=== PATIENT | female | born 1940 | race Caucasian/White ===

== ENCOUNTER 2017-01-01 21:39 | Observation (INO) ==
[2017-01-01] MEDS ORDERED: Ipratropium/Albuterol Neb 3 ML IH ONE (22:25)
--- NOTE | 2017-01-01 22:28 | Emergency Department Note ---
Disposition Clinical Impression: Hypoglycemia Congestive heart failure Qualifiers: Congestive heart failure type: systolic Congestive heart failure chronicity: acute Qualified Code(s): I50.21 - Acute systolic (congestive) heart failure Disposition: Admitted As Inpatient Condition: Good Time of Disposition: 05:00 SOB HPI - General Chief Complaint: ED Shortness of Breath/Dyspnea Stated Complaint: D.I.B. Time Seen by Provider: 01/01/17 22:20 Source: patient, EMS Mode of arrival: EMS Limitations: no limitations Nursing Notes Reviewed: Yes Vital Signs Reviewed: Yes - History of Present Illness 76-year-old white female with difficulty breathing that started this evening. She has had a cough productive of small amount of white sputum for 3 days. She has had nasal congestion. No sore throat. No fever. She denies chest pain. She has chronic leg edema which is no worse than her baseline. Breathing is improved since arrival here. She does not wear oxygen. Pt Subjective Complaint: shortness of breath Onset (ago): Just [employer] Context: recent illness Severity: moderate Consistency/Duration: constant Improves with: oxygen, rest Worsens with: lying flat, exertion, coughing Known history of: asthma, congestive heart failure Associated symptoms: Reports: denies other symptoms Treatment prior to arrival: oxygen Cough present: Yes Cough Description: Involuntary Cough Frequency: Intermittent Sputum production: Yes Sputum Amount: Scant Sputum Color: White - Related Data Home oxygen amount: none Home Medications Medication Instructions Recorded Confirmed Furosemide [Lasix] 40 mg PO BID 03/28/16 01/01/17 Isosorbide DInitrate [Isochron] 30 mg PO DAILY 03/28/16 01/01/17 Metoprolol Tartrate [Lopressor] 50 mg PO BID 03/28/16 01/01/17 Mirtazapine [Remeron] 15 mg PO HS PRN 03/28/16 01/01/17 Multivit-Min/FA/Lycopen/Lutein [A 1 tab PO DAILY 03/28/16 01/01/17 Thru Z Select Multivit Tab] Omeprazole [PriLOSEC] 20 mg PO DAILY 03/28/16 01/01/17 Paricalcitol [Zemplar] 1 mcg PO DAILY 03/28/16 01/01/17 Amlodipine [Norvasc] 5 mg PO DAILY 12/11/16 01/01/17 Becaplermin [Regranex] 0.01 gm TP BID 12/11/16 12/11/16 Gabapentin [Neurontin] 100 - 200 mg PO HS 12/11/16 12/11/16 Insulin NPH Hum/Reg Insulin Hm 28 unit SQ HS 12/11/16 01/01/17 [Humulin 70/30 Kwikpen] Insulin NPH Hum/Reg Insulin Hm 30 unit SQ QAM 12/11/16 01/01/17 [Humulin 70/30 Kwikpen] Levothyroxine Sodium [Levoxyl] 200 mcg PO DAILY 12/11/16 01/01/17 Lisinopril [Zestril] 20 mg PO DAILY 12/11/16 01/01/17 Nystatin Cream [Mycostatin Cream] 1 appl TP BID 12/11/16 12/11/16 Nystatin POWDER [Nystop] 1 appl TP BID 12/11/16 01/01/17 Warfarin [Coumadin] 1.5 mg PO WETH 12/11/16 01/01/17 Benzonatate [Tessalon] 100 mg PO TID 01/01/17 01/01/17 LORazepam [Lorazepam] 0.5 mg PO BID 01/01/17 01/01/17 Mirtazapine [Remeron] 15 mg PO HS 01/01/17 01/01/17 Nitroglycerin [Nitrostat] 0.4 mg SL QDPC PRN 01/01/17 01/01/17 Tramadol HCl [Ultram] 50 mg PO QID PRN 01/01/17 01/01/17 Previous Rx's Medication Instructions Recorded Simvastatin [Zocor] 20 mg PO HS #5 tablet 12/12/16 Allergies Allergy/AdvReac Type Severity Reaction Status Date / Time codeine Allergy Hives Verified 12/04/16 10:31 Penicillins [PCN] Allergy Hives Verified 12/04/16 10:31 All systems ED: reviewed and negative except as stated. Constitutional: Denies: fever, chills Eyes: Denies: eye discharge ENT ED: Denies: ear pain, throat pain Cardiovascular: Denies: chest pain Respiratory: Reports: cough, dyspnea. Denies: wheezes Gastrointestinal: Denies: abdominal pain, nausea, vomiting, diarrhea Genitourinary: Denies: urgency, dysuria Musculoskeletal: Denies: back pain Integumentary: Denies: rash Past Medical History - Past Medical History Medical history: Reports: arthritis, asthma, DVT, diabetes, hyperlipidemia, hypertension, myocardial infarction, peripheral artery disease Surgical history: Reports: carotid endarterectomy, cholecystectomy, orthopedic, other, other (She has had amputation of the left big toe.) Psychiatric history: Reports: anxiety, depression PHARM SPEC history: Reports: no PHARM SPEC history - Social History Smoking Status: Former smoker Smokeless Tobacco Status: No Alcohol use: Reports: none Drug use: Reports: none Physical Exam - General Limitations: no limitations General appearance: alert, in no apparent distress - Head Head exam: atraumatic, normocephalic - Eye Eye exam: Present: PERRL, EOMI. Absent: scleral icterus, conjunctival injection - ENT ENT exam: normal oropharynx, mucous membranes moist, TM's normal bilaterally - Neck Neck exam: Present: normal inspection, full ROM, trachea midline. Absent: lymphadenopathy - Respiratory Respiratory exam: Present: wheezes (Rare mild expiratory wheeze), other ( Decreased breath sounds in the bases.). Absent: respiratory distress, accessory muscle use, prolonged expiratory phase - Cardiovascular Cardiovascular exam: Present: regular rate, normal rhythm, normal heart sounds - Abdominal Exam Abdominal exam: Present: soft, Non-Tender, normal bowel sounds. Absent: distention, organomegaly, mass - Extremities Exam Extremities exam: Present: normal inspection, full ROM, other (2+ nonpitting edema in both lower extremities stasis dermatitis) - Neurological Exam Neurological exam: Present: alert, oriented X3, normal gait - Psychiatric Psychiatric exam: Present: normal affect, normal mood - Skin Skin exam: Present: warm, dry, intact. Absent: rash Course - Reevaluation(s) Reevaluation #1: Despite the fact that the patient was awake and conversive and oriented her blood sugar came back significantly decreased. She was given an amp of D50. Her blood sugar was followed and rechecked. Time: 06:14 Vital Signs Temperature 98.1 F 01/01/17 21:52 Pulse Rate 73 01/01/17 21:52 Respiratory Rate 16 01/01/17 21:52 Blood Pressure 105/47 01/01/17 21:52 O2 Sat by Pulse Oximetry 100 01/01/17 21:52 Temperature 98.8 F 01/02/17 05:49 Pulse Rate 54 01/02/17 05:05 Respiratory Rate 16 01/02/17 05:49 Blood Pressure 123/66 01/02/17 05:49 O2 Sat by Pulse Oximetry 100 01/02/17 05:05 Oxygen Delivery Oxygen Delivery Room Air Shortness of Breath/Dyspnea - MDM Narrative Medical decision making narrative: Differential includes but is not limited to congestive heart failure, pneumonia , influenza, asthma exacerbation, pleural effusion. - Medical Records Medical records reviewed: Yes I reviewed the patient's medical records. - Lab Data Lab results reviewed: Yes I reviewed the patient's lab results. Result diagrams: 01/01/17 22:47 01/01/17 22:47 Lab Results 01/01/17 01/01/17 01/01/17 Range/Units 22:16 22:47 22:47 WBC 9.2 (4.3-11.1) K/mcL RBC 4.64 (3.82-4.97) M/mcL Hgb 11.3 L (11.5-15.4) g/dL Hct 37.5 (35.3-44.9) % MCV 80.8 L (83.0-100.0) fL MCH 24.4 L (28.0-33.3) pg MCHC 30.1 L (31.6-35.5) g/dL RDW 18.8 H (11.5-14.5) % Plt Count 393 (140-400) K/mcL MPV 10.5 (9.4-12.4) fL Immature Gran % 1.4 (0-4) % Seg Neutrophils % 66.1 % Lymphocytes % 19.6 % Monocytes % 8.5 % Eosinophils % 3.4 % Basophils % 1.0 % Neutrophils # 6.1 (1.6-8.9) K/mcL Lymphocytes # 1.8 (0.6-4.6) K/mcL Monocytes # 0.8 (0.0-1.3) K/mcL Eosinophils # 0.3 (0.0-0.6) K/mcL Basophils # 0.1 (0.0-0.2) K/mcL Sodium 139 (136-145) mEq/L Potassium 4.6 H (3.5-4.5) mEq/L Chloride 99 (98-109) mEq/L Carbon Dioxide 25 (19-29) mEq/L BUN 33 H (7-20) mg/dL Creatinine 2.55 H (0.57-1.11) mg/dL Est GFR ( Amer) 22 L (> 60) Est GFR (Non-Af Amer) 18 L (> 60) BUN/Creatinine Ratio 13 (6-26) Glucose 32 L* (70-99) mg/dL POC Glucose (58-89) Calculated Osmolality 292 (280-300) Calcium 8.6 (8.6-10.8) mg/dL Total Bilirubin 1.0 (0.2-1.2) mg/dL AST 206 H (5-34) Units/L ALT 70 H (0-55) Units/L Alkaline Phosphatase 134 H (38-126) Units/L Troponin I (0-0.03) ng/mL B-Natriuretic Peptide (0-100) pg/mL Serum Total Protein 6.7 (6.0-8.3) g/dL Albumin 2.6 L (3.5-5.0) g/dL Globulin 4.1 H (2.4-3.5) g/dL Albumin/Globulin Ratio 0.6 L (1.1-2.2) Urine Color Dark Yellow (Yellow) Urine Clarity Cloudy A (Clear) Urine pH 5.0 (5.0-8.0) pH Units Ur Specific [place] >= 1.030 H (1.010-1.025) Urine Protein >=300 H (Neg-Trace) mg/dL Urine Glucose (UA) Normal (Normal) mg/dL Urine Ketones Trace H (Negative) mg/dL Urine Blood Trace-intact H (Negative) Urine Nitrite Negative (Negative) Urine Bilirubin Moderate H (Negative) Urine Urobilinogen Normal (Normal) mg/dL Ur Leukocyte Esterase Negative (Negative) Urine Microscopic RBC 5-15 H (0-3) per hpf Urine Microscopic WBC 5-15 H (0-3) per hpf Ur Squamous Epith Cells Many H (None-Few) per lpf Amorphous Sediment Moderate H (Few) Urine Bacteria Many H (None-Few) per hpf 01/01/17 01/01/17 01/01/17 Range/Units 22:47 22:47 23:28 WBC (4.3-11.1) K/mcL RBC (3.82-4.97) M/mcL Hgb (11.5-15.4) g/dL Hct (35.3-44.9) % MCV (83.0-100.0) fL MCH (28.0-33.3) pg MCHC (31.6-35.5) g/dL RDW (11.5-14.5) % Plt Count (140-400) K/mcL MPV (9.4-12.4) fL Immature Gran % (0-4) % Seg Neutrophils % % Lymphocytes % % Monocytes % % Eosinophils % % Basophils % % Neutrophils # (1.6-8.9) K/mcL Lymphocytes # (0.6-4.6) K/mcL Monocytes # (0.0-1.3) K/mcL Eosinophils # (0.0-0.6) K/mcL Basophils # (0.0-0.2) K/mcL Sodium (136-145) mEq/L Potassium (3.5-4.5) mEq/L Chloride (98-109) mEq/L Carbon Dioxide (19-29) mEq/L BUN (7-20) mg/dL Creatinine (0.57-1.11) mg/dL Est GFR ( Amer) (> 60) Est GFR (Non-Af Amer) (> 60) BUN/Creatinine Ratio (6-26) Glucose (70-99) mg/dL POC Glucose 48 L* (58-89) Calculated Osmolality (280-300) Calcium (8.6-10.8) mg/dL Total Bilirubin (0.2-1.2) mg/dL AST (5-34) Units/L ALT (0-55) Units/L Alkaline Phosphatase (38-126) Units/L Troponin I 0.04 H* (0-0.03) ng/mL B-Natriuretic Peptide 1286 H (0-100) pg/mL Serum Total Protein (6.0-8.3) g/dL Albumin (3.5-5.0) g/dL Globulin (2.4-3.5) g/dL Albumin/Globulin Ratio (1.1-2.2) Urine Color (Yellow) Urine Clarity (Clear) Urine pH (5.0-8.0) pH Units Ur Specific [place] (1.010-1.025) Urine Protein (Neg-Trace) mg/dL Urine Glucose (UA) (Normal) mg/dL Urine Ketones (Negative) mg/dL Urine Blood (Negative) Urine Nitrite (Negative) Urine Bilirubin (Negative) Urine Urobilinogen (Normal) mg/dL Ur Leukocyte Esterase (Negative) Urine Microscopic RBC (0-3) per hpf Urine Microscopic WBC (0-3) per hpf Ur Squamous Epith Cells (None-Few) per lpf Amorphous Sediment (Few) Urine Bacteria (None-Few) per hpf 01/02/17 01/02/17 Range/Units 00:00 00:38 WBC (4.3-11.1) K/mcL RBC (3.82-4.97) M/mcL Hgb (11.5-15.4) g/dL Hct (35.3-44.9) % MCV (83.0-100.0) fL MCH (28.0-33.3) pg MCHC (31.6-35.5) g/dL RDW (11.5-14.5) % Plt Count (140-400) K/mcL MPV (9.4-12.4) fL Immature Gran % (0-4) % Seg Neutrophils % % Lymphocytes % % Monocytes % % Eosinophils % % Basophils % % Neutrophils # (1.6-8.9) K/mcL Lymphocytes # (0.6-4.6) K/mcL Monocytes # (0.0-1.3) K/mcL Eosinophils # (0.0-0.6) K/mcL Basophils # (0.0-0.2) K/mcL Sodium (136-145) mEq/L Potassium (3.5-4.5) mEq/L Chloride (98-109) mEq/L Carbon Dioxide (19-29) mEq/L BUN (7-20) mg/dL Creatinine (0.57-1.11) mg/dL Est GFR ( Amer) (> 60) Est GFR (Non-Af Amer) (> 60) BUN/Creatinine Ratio (6-26) Glucose (70-99) mg/dL POC Glucose 126 H 104 H (58-89) Calculated Osmolality (280-300) Calcium (8.6-10.8) mg/dL Total Bilirubin (0.2-1.2) mg/dL AST (5-34) Units/L ALT (0-55) Units/L Alkaline Phosphatase (38-126) Units/L Troponin I (0-0.03) ng/mL B-Natriuretic Peptide (0-100) pg/mL Serum Total Protein (6.0-8.3) g/dL Albumin (3.5-5.0) g/dL Globulin (2.4-3.5) g/dL Albumin/Globulin Ratio (1.1-2.2) Urine Color (Yellow) Urine Clarity (Clear) Urine pH (5.0-8.0) pH Units Ur Specific [place] (1.010-1.025) Urine Protein (Neg-Trace) mg/dL Urine Glucose (UA) (Normal) mg/dL Urine Ketones (Negative) mg/dL Urine Blood (Negative) Urine Nitrite (Negative) Urine Bilirubin (Negative) Urine Urobilinogen (Normal) mg/dL Ur Leukocyte Esterase (Negative) Urine Microscopic RBC (0-3) per hpf Urine Microscopic WBC (0-3) per hpf Ur Squamous Epith Cells (None-Few) per lpf Amorphous Sediment (Few) Urine Bacteria (None-Few) per hpf - Radiology Data Radiology results reviewed: Yes I reviewed the patient's radiology results. ITS Impressions Chest X-Ray 01/01/17 22:25 IMPRESSION: Moderate cardiomegaly with no acute airspace disease. Question small right pleural effusion. D/ / Fermin Chanel MD / Fermin Chanel MD Interpreting Provider: Fermin Chanel MD - EKG Data EKG attestation: Yes I reviewed and interpreted this EKG. EKG results narrative: Bradycardic rhythm, rate of 41, no definite P waves, possible junctional rhythm. Right bundle branch block. Nonspecific ST-T changes. Rhythm strip shows a regular rhythm, rate of 41, QRS 162 ms with no other ectopy as interpreted by me.
[2017-01-01 22:31] LABS: Bilirubin,Urine Moderate (Negative); Blood,Urine Trace-intact (Negative); Clarity,Urine Cloudy (Clear); Color,Urine Dark Yellow (Yellow); Glucose,Urine (UA) Normal (Normal); Ketones,Urine Trace mg/dL (Negative); Leukocyte Esterase,Urine Negative (Negative); Nitrite,Urine Negative (Negative); Protein,Urine >=300 mg/dL (Neg-Trace); Specific Gravity,Urine >= 1.030 (1.010-1.025); Urobilinogen,Urine Normal (Normal)
[2017-01-01 22:42] LABS: Amorphous Sediment,Urine Moderate (Few); Squamous Epithelial Cell,Urine Many per lpf (None-Few)
[2017-01-01 22:43] LABS: Bacteria,Urine Many per hpf (None-Few)
[2017-01-01 22:57] LABS: Basophils # 0.1 K/mcL (0.0-0.2); Eosinophils # 0.3 K/mcL (0.0-0.6); Eosinophils % 3.4 %; Hematocrit 37.5 % (35.3-44.9); Hemoglobin 11.3 g/dL (11.5-15.4); Immature Granulocytes % 1.4 % (0-4); Lymphocytes # 1.8 K/mcL (0.6-4.6); Lymphocytes % 19.6 %; Mean Corpuscular HGB Conc 30.1 g/dL (31.6-35.5); Mean Corpuscular Hemoglobin 24.4 pg (28.0-33.3); Mean Corpuscular Volume 80.8 fL (83.0-100.0); Mean Platelet Volume 10.5 fL (9.4-12.4); Monocytes # 0.8 K/mcL (0.0-1.3); Monocytes % 8.5 %; Neutrophils # 6.1 K/mcL (1.6-8.9); Platelet Count 393 K/mcL (140-400); Red Blood Count 4.64 M/mcL (3.82-4.97); Red Cell Distribution Width 18.8 % (11.5-14.5); Segmented Neutrophils % 66.1 %
[2017-01-01 23:15] LABS: Albumin 2.6 g/dL (3.5-5.0); Albumin/Globulin Ratio 0.6 (1.1-2.2); Calcium 8.6 mg/dL (8.6-10.8); Globulin 4.1 g/dL (2.4-3.5); Potassium 4.6 mEq/L (3.5-4.5); Total Protein 6.7 g/dL (6.0-8.3)
[2017-01-01] MEDS ORDERED: *HR* Dextrose 50 % in Water (Syg) 50 ML SYRINGE ONE (23:26)
[2017-01-01] MEDS ORDERED: Furosemide 40 MG/4 ML VIAL IVP ONE (23:31)
[2017-01-02] MEDS ORDERED: Naloxone 0.4 MG/ML INJ IVP PRN (05:39)
[2017-01-02] MEDS ORDERED: Mirtazapine 15 MG TABLET PO PRN (05:39)
[2017-01-02 08:06] LABS: Basophils # 0.1 K/mcL (0.0-0.2); Basophils % 0.8 %; Eosinophils # 0.3 K/mcL (0.0-0.6); Eosinophils % 3.2 %; Hemoglobin 11.6 g/dL (11.5-15.4); Immature Granulocytes % 0.8 % (0-4); Lymphocytes # 1.6 K/mcL (0.6-4.6); Lymphocytes % 15.3 %; Mean Corpuscular HGB Conc 30.5 g/dL (31.6-35.5); Mean Corpuscular Hemoglobin 24.2 pg (28.0-33.3); Mean Corpuscular Volume 79.3 fL (83.0-100.0); Mean Platelet Volume 10.5 fL (9.4-12.4); Monocytes # 0.7 K/mcL (0.0-1.3); Monocytes % 6.7 %; Neutrophils # 7.5 K/mcL (1.6-8.9); Platelet Count 327 K/mcL (140-400); Red Blood Count 4.79 M/mcL (3.82-4.97); Red Cell Distribution Width 18.3 % (11.5-14.5); Segmented Neutrophils % 73.2 %
[2017-01-02] MEDS: *HR* LORazepam 0.5 MG TABLET PO SCH ×2 (08:13→21:00)
[2017-01-02] MEDS: Lisinopril 20 MG TABLET PO SCH (08:15)
[2017-01-02] MEDS: Multivit/Ca/Min/Fe/FA 1 TAB TABLET PO SCH (08:15)
[2017-01-02] MEDS: Furosemide 40 MG TABLET PO SCH ×2 (08:15→16:35)
[2017-01-02 08:20] LABS: Calcium 8.7 mg/dL (8.6-10.8); Potassium 4.3 mEq/L (3.5-4.5)
[2017-01-02] MEDS ORDERED: NON-FORMULARY MEDICATION 1 EACH EACH (Insulin Nph Hum/Reg Insulin Hm [Humulin 70/30 Kwikpe SQ SCH ×2 (09:00→21:00)
[2017-01-02] MEDS ORDERED: Isosorbide MONOnitrate (24 HR) 30 MG TAB.ER.24H PO SCH ×2 (09:00→17:42)
[2017-01-02] MEDS ORDERED: Insulin NPH 100 UNIT/ML (x5UNIT) SQ SCH (09:00)
[2017-01-02] MEDS: Ipratropium/Albuterol Neb 3 ML IH SCH ×3 (10:21→16:17)
--- NOTE | 2017-01-02 17:26 | Internal Med History&Physical ---
Date of Encounter: 01/02/17 Time of Encounter: 16:50 Assessment and Plan (1) Congestive heart failure Current visit: Yes Status: Acute She will continue Lasix 40 mg twice a day as at home along with lisinopril and Lopressor. I will add Lanoxin and increase isosorbide. Further workup will be done as needed. Qualifiers: Congestive heart failure type: systolic Congestive heart failure chronicity : acute Qualified Code(s): I50.21 - Acute systolic (congestive) heart failure (2) Microcytosis Current visit: Yes Status: Acute We will order iron studies and other labs in a.m. (3) Hypothyroidism Current visit: No Status: Acute TSH was normal at 1.899 on 03/29/2016. We will continue present dose Synthroid Qualifiers: Qualified Code(s): E03.9 - Hypothyroidism, unspecified (4) CKD (chronic kidney disease) stage 4, GFR 15-29 ml/min Current visit: No Status: Chronic We will monitor renal indices as needed. (5) DM2 (diabetes mellitus, type 2) Current visit: No Status: Chronic Hemoglobin A1c was 8.5% on 03/29/2016. We will recheck in a.m. Continue Humulin N and do Accu-Cheks with SSI. Qualifiers: Diabetes mellitus complication status: with kidney complications Diabetes mellitus complication detail: with chronic kidney disease Diabetes mellitus long term care phlebotomist insulin use: unspecified long term care phlebotomist insulin use status Chronic kidney disease stage: stage 4 (severe) Qualified Code(s): E11.22 - Type 2 diabetes mellitus with diabetic chronic kidney disease; N18.4 - Chronic kidney disease, stage 4 (severe) (6) Hypertension Current visit: No Status: Chronic Continue Lopressor Zestril and Norvasc with Lasix Qualifiers: Hypertension type: essential hypertension Qualified Code(s): I10 - Essential (primary) hypertension Internal Medicine - H&P: HPI Chief complaint: Dyspnea Admitted From: Home Plans for Post Hospital Care: Home History of present illness: Ms. Bullock is a 76 year old female who came to the emergency room stating she had increasing dyspnea with cough over the preceding 5 days. She noticed increased edema. She states she missed 3 days of taking her Lasix earlier this week when she ran out of medication. She was evaluated in emergency room and felt to have exacerbation of systolic heart failure. She was admitted to [facility] floor for ongoing care needs. She was hospitalized last at [facility] April 2016 with a left fibular fracture. Her cardiovascular history is significant for hypertension. She has known ASHD status post DE 2 most recently 2010. Heart catheter was done 2013 and she did not require stents or other intervention. Previous heart catheter done 2010 showed mild LMCA disease with 15% stenosis, LAD with 60% stenosis in the midportion, and 60-70% stenosis in the proximal to mid left circumflex. The proximal RCA was completely occluded. There were good collateral vessels from the first obtuse marginal to the distal right posterolateral artery. The LVEF was 45-50%. She has known CHF with echocardiogram 2010 showing LVEF of 30-35% and overall poor visualization. There was mild MR but no other significant valvular abnormalities. She had grade 1 diastolic dysfunction. She has known ASPVD with left leg stent placed. She has known ASCVD with left carotid endarterectomy in the past. She has had a left leg DVT in the past and is now on Coumadin. Past Med Surg Social Fam HX - Past Medical History Medical history: arthritis, asthma, DVT, diabetes, hyperlipidemia, hypertension , myocardial infarction, peripheral artery disease Psychiatric history: anxiety, depression - Past Surgical History Surgical History: carotid endarterectomy, cholecystectomy, orthopedic, other, other - Social History Smoking Status: Former smoker Smokeless Tobacco Status: No Alcohol use: none Drug use: none - Family History Mother Family Member Ethnicity: Non- Living Status: Hx Family Cardiac Disorders: No Hx Family Respiratory Disorders: No Hx Family Cancer: Yes Hx Family GI Disorders: No Hx Family Endocrine Disorder: No Hx Family Neuromuscular Disorders: No Hx Family Neurologic Disorders: No Hx Family HEENT Disorders: No Hx Family Autoimmune Disorders: No Internal Medicine - H&P: Meds Furosemide [Lasix] 40 mg PO BID 03/28/16 [History] Isosorbide DInitrate [Isochron] 30 mg PO DAILY 03/28/16 [History] Metoprolol Tartrate [Lopressor] 50 mg PO BID 03/28/16 [History] Mirtazapine [Remeron] 15 mg PO HS PRN 03/28/16 [History] Multivit-Min/FA/Lycopen/Lutein [A Thru Z Select Multivit Tab] 1 tab PO DAILY [History] Omeprazole [PriLOSEC] 20 mg PO DAILY 03/28/16 [History] Paricalcitol [Zemplar] 1 mcg PO DAILY 03/28/16 [History] Amlodipine [Norvasc] 5 mg PO DAILY 12/11/16 [History] Becaplermin [Regranex] 0.01 gm TP BID 12/11/16 [History] Gabapentin [Neurontin] 100 - 200 mg PO HS 12/11/16 [History] Insulin NPH Hum/Reg Insulin Hm [Humulin 70/30 Kwikpen] 28 unit SQ HS 12/11/16 [ History] Insulin NPH Hum/Reg Insulin Hm [Humulin 70/30 Kwikpen] 30 unit SQ QAM 12/11/16 [ History] Levothyroxine Sodium [Levoxyl] 200 mcg PO DAILY 12/11/16 [History] Lisinopril [Zestril] 20 mg PO DAILY 12/11/16 [History] Nystatin Cream [Mycostatin Cream] 1 appl TP BID 12/11/16 [History] Nystatin POWDER [Nystop] 1 appl TP BID 12/11/16 [History] Warfarin [Coumadin] 1.5 mg PO WETH 12/11/16 [History] Simvastatin [Zocor] 20 mg PO HS #5 tablet 12/12/16 [Rx] Benzonatate [Tessalon] 100 mg PO TID 01/01/17 [History] LORazepam [Lorazepam] 0.5 mg PO BID 01/01/17 [History] Mirtazapine [Remeron] 15 mg PO HS 01/01/17 [History] Nitroglycerin [Nitrostat] 0.4 mg SL QDPC PRN 01/01/17 [History] Tramadol HCl [Ultram] 50 mg PO QID PRN 01/01/17 [History] Allergies codeine Allergy (Verified 12/04/16 10:31) Hives Penicillins [PCN] Allergy (Verified 12/04/16 10:31) Hives All Systems PM: A 10-system review of systems was performed and is negative for pertinent findings except as documented above in the HPI. Review of systems: Gen.: Her weight has stable since the April 2016 hospitalization at approximately 90 kg Cardiovascular: As per history of present illness Respiratory: She smoked from age [age] never exceeding 1 pack per day. She had PFTs in the past but does not wear home oxygen. GI: She has had cholecystectomy denies disorders of her liver or exocrine pancreas. She has GERD. : She has no history of hematuria dysuria or kidney stones. She has CKD stage III but does not follow with nephrology regularly. Neurologic: She has right eye blindness. She denies large distribution strokes or seizures. Endocrine: She was diagnosed with DM 2 in 1993. She has hyperlipidemia and hypothyroidism. Allergy/oncology: She had anemia in the past. She does not have known internal malignancies or other blood disorders. Psychiatric: She has anxiety and depression but no other mental health issues Musk skeletal: She had cervical spine osteomyelitis in 2010 and received IV antibiotics for several weeks. She has chronic low back pain. She does not have documented gout or osteoporosis. She had amputation of the left great toe and has had wound clinic evaluation for left lateral foot ulcer. She has acute fibular fracture of the medial malleolus and subacute fracture of the proximal fibula March 2016. - Constitutional Vitals: Temp Pulse Resp BP Pulse Ox 98.5 F 66 16 140/68 97 01/02/17 16:27 01/02/17 16:27 01/02/17 16:27 01/02/17 16:27 01/02/17 16:27 Exam: Gen.: She is a well developed overweight female who appears in no severe distress at present time. HEENT: Head is atraumatic and normocephalic. Eyes: EOMI. There is no scleral icterus. Mouth: Mucosa is moist. Neck: Supple and nontender. There is no thyromegaly or adenopathy noted. Heart: Regular without murmurs gallops or ectopics. Lungs: No wheezes or crackles are heard. Abdomen: Soft and nontender. No masses or guarding are noted. She has a large pannus Extremities: There is no cyanosis edema or clubbing noted. The left great toe is absent. She has mild DJD changes of her hands. The left foot is wrapped in gauze and I did not unwrap it. Neurologic: Mental status: She is talkative and able to answer most questions appropriately. Cranial nerves: Smile is symmetric. Forehead wrinkles bilaterally. Tongue protrudes midline. EOMI. Motor: There is no pronator drift. Cerebellar: Finger to nose is intact bilaterally. Skin: Warm and dry Internal Med - H&P Results - Labs CBC & Chem 7: 01/02/17 07:45 01/02/17 07:45 Labs: Short CBC 01/02/17 Range/Units 07:45 WBC 10.2 (4.3-11.1) K/mcL Hgb 11.6 (11.5-15.4) g/dL Hct 38.0 (35.3-44.9) % Plt Count 327 (140-400) K/mcL Neutrophils # 7.5 (1.6-8.9) K/mcL BMP 01/02/17 07:45 Sodium 139 Potassium 4.3 Chloride 98 Carbon Dioxide 27 BUN 36 H Creatinine 2.70 H Glucose 112 H Calcium 8.7 Cardiac Enzymes 01/02/17 01/02/17 Range/Units 07:45 12:29 Troponin I 0.02 0.02 (0-0.03) ng/mL
--- NOTE | 2017-01-02 19:17 | Electrocardiograph Report ---
[address] [place], [place] [address] Test Date: 2017-01-01 Pat Name: Maribel Bullock Department: [id number] Room: [facility] Gender: F Pharmaceutical Worker: : 1940 Requested By: David Ramachandran Order Number: [id number] Reading MD: Shahab Falcon MD Measurements Intervals [place] Rate: 41 P: [place]: 0 QRS: 110 QRSD: 163 T: 65 QT: 596 QTc: 534 Interpretive Statements JUNCTIONAL RHYTHM MARKED RIGHT AXIS DEVIATION RIGHT BUNDLE BRANCH BLOCK SEPTAL MYOCARDIAL INFARCTION, OF INDETERMINATE AGE Electronically Signed On 01-02-2017 19:15:01 EST by Shahab Falcon MD
[2017-01-02] MEDS: Insulin NPH 100 UNIT/ML (x5UNIT) SQ SCH (20:48)
[2017-01-02] MEDS: *HR* Digoxin 0.25 MG TABLET PO SCH (21:01)
[2017-01-03] MEDS: Furosemide 40 MG TABLET PO SCH ×2 (06:18→17:02)
[2017-01-03] MEDS: Insulin NPH 100 UNIT/ML (x5UNIT) SQ SCH ×2 (08:29→22:04)
[2017-01-03] MEDS: Isosorbide MONOnitrate (24 HR) 60 MG TAB.ER.24H PO SCH (08:31)
[2017-01-03] MEDS: Lisinopril 20 MG TABLET PO SCH (08:31)
[2017-01-03] MEDS: *HR* Digoxin 0.25 MG TABLET PO SCH (08:32)
[2017-01-03] MEDS: Multivit/Ca/Min/Fe/FA 1 TAB TABLET PO SCH (08:32)
[2017-01-03] MEDS: *HR* LORazepam 0.5 MG TABLET PO SCH ×2 (08:32→22:04)
[2017-01-03 08:41] LABS: Basophils % 0.1 %; Hemoglobin 11.2 g/dL (11.5-15.4); Immature Granulocytes % 0.9 % (0-4); Lymphocytes # 0.4 K/mcL (0.6-4.6); Lymphocytes % 4.7 %; Mean Corpuscular HGB Conc 30.3 g/dL (31.6-35.5); Mean Corpuscular Volume 79.4 fL (83.0-100.0); Mean Platelet Volume 10.9 fL (9.4-12.4); Monocytes # 0.2 K/mcL (0.0-1.3); Monocytes % 2.1 %; Neutrophils # 8.4 K/mcL (1.6-8.9); Platelet Count 346 K/mcL (140-400); Red Blood Count 4.66 M/mcL (3.82-4.97); Red Cell Distribution Width 18.6 % (11.5-14.5); Segmented Neutrophils % 92.2 %
[2017-01-03 08:54] LABS: INR 5.2; Prothrombin Time 59.3 Seconds (9.4-12.1)
[2017-01-03 08:59] LABS: Calcium 9.1 mg/dL (8.6-10.8)
[2017-01-03 09:25] LABS: Potassium 5.3 mEq/L (3.5-4.5)
--- NOTE | 2017-01-03 10:41 | Internal Med Progress Note ---
Date of Encounter: 01/03/17 Time of Encounter: 10:30 - Assessment and plan (1) Congestive heart failure Current Visit: Yes Status: Acute Assessment and plan: January 03. Continue Lasix, lisinopril, Lopressor, Lanoxin, and isosorbide Qualifiers: Congestive heart failure type: systolic Congestive heart failure chronicity : acute Qualified Code(s): I50.21 - Acute systolic (congestive) heart failure (2) Microcytosis Current Visit: Yes Status: Acute Assessment and plan: January 03. Iron studies are pending (3) Hypothyroidism Current Visit: No Status: Acute Assessment and plan: January 03. We will recheck TSH in a.m. Qualifiers: Qualified Code(s): E03.9 - Hypothyroidism, unspecified (4) CKD (chronic kidney disease) stage 4, GFR 15-29 ml/min Current Visit: No Status: Chronic Assessment and plan: January 03. Continue to monitor renal indices.. (5) DM2 (diabetes mellitus, type 2) Current Visit: No Status: Chronic Assessment and plan: January 03. Hemoglobin A1c is pending Qualifiers: Diabetes mellitus complication status: with kidney complications Diabetes mellitus complication detail: with chronic kidney disease Diabetes mellitus technician terminal and repeater insulin use: unspecified penitentiary insulin use status Chronic kidney disease stage: stage 4 (severe) Qualified Code(s): E11.22 - Type 2 diabetes mellitus with diabetic chronic kidney disease; N18.4 - Chronic kidney disease, stage 4 (severe) (6) Hypertension Current Visit: No Status: Chronic Assessment and plan: January 03. Continue Lopressor, Zestril, Norvasc, and Lasix Qualifiers: Hypertension type: essential hypertension Qualified Code(s): I10 - Essential (primary) hypertension (7) Foot ulcer Current Visit: No Status: Chronic Assessment and plan: January 03. Continue present treatment Qualifiers: Laterality: unspecified laterality Non-pressure ulcer stage: limited to breakdown of skin Qualified Code(s): L97.501 - Non-pressure chronic ulcer of other part of unspecified foot limited to breakdown of skin - Subjective Interval history: January 03. She has no new complaints states her breathing has improved - Constitutional Vitals: Temp Pulse Resp BP Pulse Ox 97.4 F L 65 20 129/80 94 L 01/03/17 08:00 01/03/17 08:00 01/03/17 08:00 01/03/17 08:00 01/03/17 08:00 Exam: Her right medial ankle area has an ulcer measuring approximately 6 cm maximum diameter. It is shallow and has a clean granulation tissue base. There is a small area of necrotic tissue in the proximal portion. She has a ulcerative area approximately 6-8 mm on the lateral left foot area at the base of the fifth toe. She has very shallow ulcers on the dorsum of the distal phalanx of the left second and third toes. She has a large area in her mid back approximately 25 cm maximum diameter that appears to be tinea corporis. Reviewed her medications and lab results. Internal Medicine: Result - Labs CBC & Chem 7: 01/03/17 04:00 01/03/17 08:00 Labs: Short CBC 01/03/17 Range/Units 04:00 WBC 9.2 (4.3-11.1) K/mcL Hgb 11.2 L (11.5-15.4) g/dL Hct 37.0 (35.3-44.9) % Plt Count 346 (140-400) K/mcL Neutrophils # 8.4 (1.6-8.9) K/mcL BMP 01/03/17 08:00 Sodium 134 L Potassium 5.3 H D Chloride 98 Carbon Dioxide 21 BUN 40 H Creatinine 2.63 H Glucose 359 H Calcium 9.1 Cardiac Enzymes 01/02/17 Range/Units 12:29 Troponin I 0.02 (0-0.03) ng/mL - ABG Interpretation ABG results: PT/INR, D-dimer PT 59.3 Seconds (9.4-12.1) H* 01/03/17 08:26 Consult Discharge Plan - Plan Referrals: Marisa Warren MD [Primary Care Provider] - 1 week
[2017-01-03] MEDS ORDERED: *HR* Digoxin 0.25 MG TABLET PO SCH (10:50)
[2017-01-03] MEDS: Clotrimazole/Betameth Dip CRM 45 APPL/45 GM TUBE TP SCH ×2 (11:46→22:06)
[2017-01-03 13:32] LABS: Hemoglobin A1C 7.6 %
[2017-01-04 05:51] LABS: Basophils % 0.1 %; Hematocrit 32.8 % (35.3-44.9); Immature Granulocytes % 0.7 % (0-4); Lymphocytes # 0.7 K/mcL (0.6-4.6); Lymphocytes % 5.1 %; Mean Corpuscular HGB Conc 30.5 g/dL (31.6-35.5); Mean Corpuscular Hemoglobin 24.3 pg (28.0-33.3); Mean Corpuscular Volume 79.8 fL (83.0-100.0); Mean Platelet Volume 11.2 fL (9.4-12.4); Monocytes # 0.8 K/mcL (0.0-1.3); Monocytes % 5.6 %; Platelet Count 325 K/mcL (140-400); Red Blood Count 4.11 M/mcL (3.82-4.97); Red Cell Distribution Width 18.6 % (11.5-14.5); Segmented Neutrophils % 88.5 %
[2017-01-04 06:00] LABS: Calcium 9.1 mg/dL (8.6-10.8); Magnesium 2.1 mg/dL (1.6-2.6)
[2017-01-04 06:19] VITALS: BP 132/80
[2017-01-04 06:24] LABS: Thyroid Stimulating Hormone 1.909 mcIU/mL (0.350-4.840)
[2017-01-04 06:35] LABS: Neutrophils # 12.7 K/mcL (1.6-8.9)
[2017-01-04] MEDS: Insulin NPH 100 UNIT/ML (x5UNIT) SQ SCH (08:00)
[2017-01-04] MEDS: Furosemide 40 MG TABLET PO SCH (08:00)
--- NOTE | 2017-01-04 08:27 | Discharge Summary ---
Date of Encounter: 01/04/17 Time of Encounter: 08:10 - Discharge Diagnosis (1) Congestive heart failure Priority: Primary Status: Chronic Qualifiers: Congestive heart failure type: systolic Congestive heart failure chronicity : acute Qualified Code(s): I50.21 - Acute systolic (congestive) heart failure (2) Microcytosis Priority: Secondary Status: Chronic (3) Hypothyroidism Priority: Secondary Status: Chronic Qualifiers: Qualified Code(s): E03.9 - Hypothyroidism, unspecified (4) CKD (chronic kidney disease) stage 4, GFR 15-29 ml/min Priority: Secondary Status: Chronic (5) DM2 (diabetes mellitus, type 2) Priority: Secondary Status: Chronic Qualifiers: Diabetes mellitus complication status: with kidney complications Diabetes mellitus complication detail: with chronic kidney disease Diabetes mellitus chcf insulin use: unspecified termite inspector insulin use status Chronic kidney disease stage: stage 4 (severe) Qualified Code(s): E11.22 - Type 2 diabetes mellitus with diabetic chronic kidney disease; N18.4 - Chronic kidney disease, stage 4 (severe) (6) Hypertension Priority: Secondary Status: Chronic Qualifiers: Hypertension type: essential hypertension Qualified Code(s): I10 - Essential (primary) hypertension (7) Foot ulcer Priority: Secondary Status: Chronic Qualifiers: Laterality: unspecified laterality Non-pressure ulcer stage: limited to breakdown of skin Qualified Code(s): L97.501 - Non-pressure chronic ulcer of other part of unspecified foot limited to breakdown of skin - Discharge Medications Prescriptions: Clotrimazole/Betameth Dip CRM [Lotrisone CRM] 1 appl TP BID #1 tube Digoxin [Lanoxin] 0.125 mg PO DAILY #30 tablet Isosorbide MONOnitrate (24 HR) [Imdur] 60 mg PO DAILY #30 tab.er.24h Home Medications: Furosemide [Lasix] 40 mg PO BID 03/28/16 [History] Metoprolol Tartrate [Lopressor] 50 mg PO BID 03/28/16 [History] Mirtazapine [Remeron] 15 mg PO HS PRN 03/28/16 [History] Multivit-Min/FA/Lycopen/Lutein [A Thru Z Select Multivit Tab] 1 tab PO DAILY [History] Omeprazole [PriLOSEC] 20 mg PO DAILY 03/28/16 [History] Paricalcitol [Zemplar] 1 mcg PO DAILY 03/28/16 [History] Amlodipine [Norvasc] 5 mg PO DAILY 12/11/16 [History] Becaplermin [Regranex] 0.01 gm TP BID 12/11/16 [History] Gabapentin [Neurontin] 100 - 200 mg PO HS 12/11/16 [History] Insulin NPH Hum/Reg Insulin Hm [Humulin 70/30 Kwikpen] 28 unit SQ HS 12/11/16 [ History] Insulin NPH Hum/Reg Insulin Hm [Humulin 70/30 Kwikpen] 30 unit SQ QAM 12/11/16 [ History] Levothyroxine Sodium [Levoxyl] 200 mcg PO DAILY 12/11/16 [History] Lisinopril [Zestril] 20 mg PO DAILY 12/11/16 [History] Nystatin Cream [Mycostatin Cream] 1 appl TP BID 12/11/16 [History] Nystatin POWDER [Nystop] 1 appl TP BID 12/11/16 [History] Warfarin [Coumadin] 1.5 mg PO QDPC 12/11/16 [History] LORazepam [Lorazepam] 0.5 mg PO BID PRN 01/01/17 [History] Mirtazapine [Remeron] 15 mg PO HS 01/01/17 [History] Nitroglycerin [Nitrostat] 0.4 mg SL QDPC PRN 01/01/17 [History] Tramadol HCl [Ultram] 50 mg PO QID PRN 01/01/17 [History] HYDROcodone/Acet 5/325 mg [[place] 5-325 mg] 1 tab PO Q8H PRN 01/03/17 [History] Meclizine HCl [Verticalm] 25 mg PO TID PRN 01/03/17 [History] Clotrimazole/Betameth Dip CRM [Lotrisone CRM] 1 appl TP BID #1 tube 01/04/17 [Rx ] Digoxin [Lanoxin] 0.125 mg PO DAILY #30 tablet 01/04/17 [Rx] Isosorbide MONOnitrate (24 HR) [Imdur] 60 mg PO DAILY #30 tab.er.24h 01/04/17 [ Rx] Allergies/Adverse Reactions: Allergies codeine Allergy (Verified 12/04/16 10:31) Hives Penicillins [PCN] Allergy (Verified 12/04/16 10:31) Hives Date of admission: 01/02/17 05:13 Primary care physician: Marisa Warren Consults: 01/02/17 06:42 Consult to Agricultural Economist [CONS] Routine Reason for SW Consult: DC planning - Patient Status Disposition: Home, Self-Care Condition: Good Overall status at discharge: patient is progressing back to baseline - Discharge Instructions Follow Up With: Marisa Warren MD [Primary Care Provider] - 1 week - Diet and Activity Activity: resume usual activities as tolerated Diet: diabetic diet Hospital course: Ms. Bullock is a 76 year old female who came to the emergency room stating she had increasing dyspnea with cough over the preceding 5 days. She noticed increased edema. She states she missed 3 days of taking her Lasix earlier this week when she ran out of medication. She was evaluated in emergency room and felt to have exacerbation of systolic heart failure. She was admitted to [facility] floor for ongoing care needs. Initial orders were written by the emergency room physician. I saw her on January 02 and performed the history and physical. She was placed back on her home dose of Lasix along with lisinopril and Lopressor. I increased her isosorbide to 60 mg daily and added Lanoxin. She clinically improved with resolution of dyspnea. Her bn- peptide remained elevated throughout her hospital stay. Her creatinine remained stable at 2.6 on the day of discharge with estimated GFR of 18. Hemoglobin A1c return slightly above desirable level at 7.6%. Dr. Warren can adjust diabetic medications as needed. Anemia testing showed iron 60, transferrin saturation 20%, ferritin 946, and B12 level 559. Hemoglobin was 10.0 the day of discharge. She was started on Lotrisone cream for a large area of dermatitis on her mid lower back area. She will continue this for 10 days upon discharge On January 04 she felt improved and stable for discharge home. She will follow with Dr. Warren within one week. Home health services will be resumed. - Time Spent with Patient Total time spent providing and/or coordinating discharge services: - Constitutional Vitals: Temp Pulse Resp BP Pulse Ox 97.6 F 61 18 132/80 99 01/04/17 06:18 01/04/17 06:18 01/04/17 06:18 01/04/17 06:18 01/04/17 06:18
--- NOTE | 2017-01-04 08:34 | Physician Discharge Referral ---
Home Health/Hosp Referral Info Transfer to: Home Health Attending Provider: Elliott Provider in Charge Post Discharge: PCP Jannette) - Diagnosis (1) Congestive heart failure Priority: Primary Status: Chronic (2) Microcytosis Priority: Secondary Status: Chronic (3) Hypothyroidism Priority: Secondary Status: Chronic (4) CKD (chronic kidney disease) stage 4, GFR 15-29 ml/min Priority: Secondary Status: Chronic (5) DM2 (diabetes mellitus, type 2) Priority: Secondary Status: Chronic (6) Hypertension Priority: Secondary Status: Chronic (7) Foot ulcer Status: Chronic - Respiratory Orders Smoking Cessation: Smoking cessation has been advised. For more information, call the [place] Tobacco Quit Line at 3-072-NEVM-NOW. - Diet/Nutrition Diet/Nutrition Orders: No Concentrated Sweets - Activity Activity Orders: Chair, Walker - Services Needed Following services are medically necessary services: Nursing, Home Health Aide, Physical Therapy, Occupational Therapy - Transfer Medications Prescriptions: Clotrimazole/Betameth Dip CRM [Lotrisone CRM] 1 appl TP BID #1 tube Digoxin [Lanoxin] 0.125 mg PO DAILY #30 tablet Isosorbide MONOnitrate (24 HR) [Imdur] 60 mg PO DAILY #30 tab.er.24h Home Medications: Furosemide [Lasix] 40 mg PO BID 03/28/16 [History] Metoprolol Tartrate [Lopressor] 50 mg PO BID 03/28/16 [History] Mirtazapine [Remeron] 15 mg PO HS PRN 03/28/16 [History] Multivit-Min/FA/Lycopen/Lutein [A Thru Z Select Multivit Tab] 1 tab PO DAILY [History] Omeprazole [PriLOSEC] 20 mg PO DAILY 03/28/16 [History] Paricalcitol [Zemplar] 1 mcg PO DAILY 03/28/16 [History] Amlodipine [Norvasc] 5 mg PO DAILY 12/11/16 [History] Becaplermin [Regranex] 0.01 gm TP BID 12/11/16 [History] Gabapentin [Neurontin] 100 - 200 mg PO HS 12/11/16 [History] Insulin NPH Hum/Reg Insulin Hm [Humulin 70/30 Kwikpen] 28 unit SQ HS 12/11/16 [ History] Insulin NPH Hum/Reg Insulin Hm [Humulin 70/30 Kwikpen] 30 unit SQ QAM 12/11/16 [ History] Levothyroxine Sodium [Levoxyl] 200 mcg PO DAILY 12/11/16 [History] Lisinopril [Zestril] 20 mg PO DAILY 12/11/16 [History] Nystatin Cream [Mycostatin Cream] 1 appl TP BID 12/11/16 [History] Nystatin POWDER [Nystop] 1 appl TP BID 12/11/16 [History] Warfarin [Coumadin] 1.5 mg PO QDPC 12/11/16 [History] LORazepam [Lorazepam] 0.5 mg PO BID PRN 01/01/17 [History] Mirtazapine [Remeron] 15 mg PO HS 01/01/17 [History] Nitroglycerin [Nitrostat] 0.4 mg SL QDPC PRN 01/01/17 [History] Tramadol HCl [Ultram] 50 mg PO QID PRN 01/01/17 [History] HYDROcodone/Acet 5/325 mg [[place] 5-325 mg] 1 tab PO Q8H PRN 01/03/17 [History] Meclizine HCl [Verticalm] 25 mg PO TID PRN 01/03/17 [History] Clotrimazole/Betameth Dip CRM [Lotrisone CRM] 1 appl TP BID #1 tube 01/04/17 [Rx ] Digoxin [Lanoxin] 0.125 mg PO DAILY #30 tablet 01/04/17 [Rx] Isosorbide MONOnitrate (24 HR) [Imdur] 60 mg PO DAILY #30 tab.er.24h 01/04/17 [ Rx] Allergies/Adverse Reactions: Allergies codeine Allergy (Verified 12/04/16 10:31) Hives Penicillins [PCN] Allergy (Verified 12/04/16 10:31) Hives Certification: Further, I certify that my clinical findings support that this patient is homebound (i.e. absences from home require considerable and taxing effort and are for medical reasons or caodaism services or infrequently or short duration when for other reasons) because: Homebound Reason: Leaving home requires considerable and taxing effort due to condition (Severe deconditioning and near blindness) Attestation: My signature below is to certify that this patient is under my care and that I, or nurse practitioner, or a physician's court assistant working with me, has a face-to -face encounter with this patient.
[2017-01-04] MEDS: Isosorbide MONOnitrate (24 HR) 60 MG TAB.ER.24H PO SCH (11:28)
[2017-01-04] MEDS: *HR* LORazepam 0.5 MG TABLET PO SCH (11:31)
[2017-01-04] MEDS: Multivit/Ca/Min/Fe/FA 1 TAB TABLET PO SCH (11:33)
[2017-01-04] MEDS: Clotrimazole/Betameth Dip CRM 45 APPL/45 GM TUBE TP SCH (11:34)
== END 2017-01-04 03:35 | disposition home or self-care (01) ==
LOC: INPPIK 21:39 → EMEROOPIK 21:39 → INPPIK 01-02 06:10
PROVIDERS: ADMIT Emergency Medicine; ATTEND Internal Medicine

== ENCOUNTER 2017-01-06 16:37 | Observation (INO) ==
--- NOTE | 2017-01-06 16:51 | Emergency Department Note ---
Disposition Clinical Impression: Pancreatitis, Abdominal pain, Constipation, Pneumonia Disposition: Admitted As Inpatient Condition: Fair Referrals: Marisa Warren MD [Primary Care Provider] - Forms: Work/School Release, ED Satisfaction Letter Time of Disposition: 19:10 (KAIDEN OBSHenny) Abdominal Pain HPI - General Chief Complaint: ED Abdominal Pain Stated Complaint: belly pain Time Seen by Provider: 01/06/17 16:45 Source: patient, EMS Mode of arrival: EMS Limitations: no limitations Nursing Notes Reviewed: Yes Vital Signs Reviewed: Yes - History of Present Illness HPI Narrative: Patient was just discharged from the hospital on Friday presents now to the emergency room states that she has not gotten out of bed patient states that she is weak does not have any energy she is having severe epigastric pain with radiation of the chest denies any nausea vomiting or diaphoresis patient states she has not had a bowel movement has not passed any gas patient's chart stabbing type pain in the epigastric region radiating into the back and then up in the chest denies lightheadedness dizziness denies any burning or urgency stay numbness tingling weakness cough cold of flulike symptoms patient denies any additional complaints at this time very poor historian Pt Subjective Complaint: abdominal pain Onset (ago): day(s) (2) Consistency: constant, Worsening Location: epigastric Pain Severity: severe Pain Scale: 10 Quality: stabbing, aching Radiation: back Improves with: nothing Worsens with: nothing Context: sick contacts Associated symptoms: Reports: nausea, constipation. Denies: vomiting, diarrhea , fever, chills, dysuria, hematemesis, hematochezia, melena, hematuria, anorexia , syncope Treatments prior to arrival: none - Related Data Home Medications Medication Instructions Recorded Confirmed Furosemide [Lasix] 40 mg PO BID 03/28/16 01/01/17 Metoprolol Tartrate [Lopressor] 50 mg PO BID 03/28/16 01/01/17 Mirtazapine [Remeron] 15 mg PO HS PRN 03/28/16 01/01/17 Multivit-Min/FA/Lycopen/Lutein [A 1 tab PO DAILY 03/28/16 01/01/17 Thru Z Select Multivit Tab] Omeprazole [PriLOSEC] 20 mg PO DAILY 03/28/16 01/01/17 Paricalcitol [Zemplar] 1 mcg PO DAILY 03/28/16 01/01/17 Amlodipine [Norvasc] 5 mg PO DAILY 12/11/16 01/01/17 Becaplermin [Regranex] 0.01 gm TP BID 12/11/16 01/03/17 Gabapentin [Neurontin] 100 - 200 mg PO HS 12/11/16 01/03/17 Insulin NPH Hum/Reg Insulin Hm 28 unit SQ HS 12/11/16 01/01/17 [Humulin 70/30 Kwikpen] Insulin NPH Hum/Reg Insulin Hm 30 unit SQ QAM 12/11/16 01/01/17 [Humulin 70/30 Kwikpen] Levothyroxine Sodium [Levoxyl] 200 mcg PO DAILY 12/11/16 01/01/17 Lisinopril [Zestril] 20 mg PO DAILY 12/11/16 01/01/17 Nystatin Cream [Mycostatin Cream] 1 appl TP BID 12/11/16 01/03/17 Nystatin POWDER [Nystop] 1 appl TP BID 12/11/16 01/01/17 Warfarin [Coumadin] 1.5 mg PO QDPC 12/11/16 01/03/17 LORazepam [Lorazepam] 0.5 mg PO BID PRN 01/01/17 01/01/17 Mirtazapine [Remeron] 15 mg PO HS 01/01/17 01/01/17 Nitroglycerin [Nitrostat] 0.4 mg SL QDPC PRN 01/01/17 01/01/17 Tramadol HCl [Ultram] 50 mg PO QID PRN 01/01/17 01/01/17 HYDROcodone/Acet 5/325 mg [[place] 1 tab PO Q8H PRN 01/03/17 01/03/17 5-325 mg] Meclizine HCl [Verticalm] 25 mg PO TID PRN 01/03/17 01/03/17 Previous Rx's Medication Instructions Recorded Clotrimazole/Betameth Dip CRM 1 appl TP BID #1 tube 01/04/17 [Lotrisone CRM] Digoxin [Lanoxin] 0.125 mg PO DAILY #30 tablet 01/04/17 Isosorbide MONOnitrate (24 HR) 60 mg PO DAILY #30 tab.er.24h 01/04/17 [Imdur] Allergies Allergy/AdvReac Type Severity Reaction Status Date / Time codeine Allergy Hives Verified 12/04/16 10:31 Penicillins [PCN] Allergy Hives Verified 12/04/16 10:31 All systems ED: reviewed and negative except as stated. Constitutional: Reports: weakness. Denies: fever, chills Eyes: Denies: vision change ENT ED: Denies: ear pain, throat pain Cardiovascular: Denies: chest pain, palpitations Respiratory: Denies: cough, dyspnea, wheezes Gastrointestinal: Reports: abdominal pain, other (rectal pain). Denies: nausea , vomiting Genitourinary: Denies: urgency, dysuria, frequency Musculoskeletal: Denies: back pain Integumentary: Denies: abrasion Neurological: Denies: headache Psychiatric: Denies: anxiety Endocrine: Denies: fatigue Hematological/Lymphatic: Denies: easy bleeding Allergic/Immunologic: Denies: facial swelling Abdominal Pain PMH - Past Medical History Medical history: Reports: arthritis, asthma, DVT, diabetes, hyperlipidemia, hypertension, myocardial infarction, peripheral artery disease Female Surgical History: Reports: carotid endarterectomy, cholecystectomy, other GREEN BUILDING MATERIALS DISTRIBUTOR history: Reports: no GREEN BUILDING MATERIALS DISTRIBUTOR history Psychiatric history: Reports: anxiety, depression - Social History Smoking status: Former smoker Alcohol use: Reports: none Drug use: Reports: none Physical Exam - General Limitations: no limitations, physical limitation General appearance: alert, in no apparent distress, anxious, obese - Head Head exam: atraumatic, normocephalic, normal inspection - Eye Eye exam: Present: normal appearance, PERRL, EOMI - ENT ENT exam: normal exam, normal oropharynx, mucous membranes moist, TM's normal bilaterally, normal external ear exam - Neck Neck exam: Present: normal inspection, full ROM, trachea midline - Chest Chest inspection: Present: normal inspection, symmetric chest wall rise - Respiratory Respiratory exam: Present: normal lung sounds bilaterally - Cardiovascular Cardiovascular exam: Present: regular rate, normal rhythm, normal heart sounds - Abdominal Exam Abdominal exam: Present: soft, Non-Tender, normal bowel sounds. Absent: guarding, rebound, rigidity, mass, pulsatile mass - Rectal Exam Rectal exam: Present: hemorrhoids - Extremities Exam Extremities exam: Present: normal inspection, full ROM, normal capillary refill , other (And has limited strength of the lower extremities appears to be cared for or waited upon ) - Expanded Upper Extremity Exam Shoulder exam: Present: normal inspection, full ROM Arm exam: Present: normal inspection, full ROM Elbow exam: Present: normal inspection, full ROM Forearm/Wrist exam: Present: normal inspection, full ROM Hand exam: Present: normal inspection, full ROM Vascular exam: Normal: capillary refill, radial pulse - Expanded Lower Extremity Exam Hip/Pelvis exam: Present: normal inspection, full ROM Upper leg exam: Present: normal inspection, full ROM Knee exam: Present: normal inspection, full ROM Lower leg exam: Present: normal inspection, full ROM Ankle exam: Present: normal inspection, full ROM Foot/toe exam: Present: normal inspection, full ROM Neurovascular/Tendon exam: Present: normal capillary refill, normal fine/light touch Gait: observed and normal - Back Exam Back exam: Present: normal inspection, full ROM. Absent: muscle spasm - Neurological Exam Neurological exam: Present: alert, oriented X3, CN II-XII intact - Psychiatric Psychiatric exam: Present: anxious - Skin Skin exam: Present: warm, dry, intact, normal color Course Course Narrative: She was seen and examined patient used cry out for her mommy on examination the patient is a soft abdomen tender slightly in the epigastric region she has no rebound no rigidity no pulsatile mass and workup was done which shows that she has a little bit of a mild pancreatitis developing with an elevated lipase she has hemorrhoids in the rectal region but there is also some concern that she wants everybody to care for her and she may need social service consult for disposition A she will be admitted she was placed on antibiotic because a chest x-ray cannot exclude the possibility of a pneumonia with the pancreatitis which could also be causing her chest epigastric pain patient transferred to [facility] stable condition Vital Signs Temperature 98.0 F 01/06/17 16:39 Pulse Rate 98 01/06/17 16:39 Respiratory Rate 18 01/06/17 16:39 Blood Pressure 137/67 01/06/17 16:39 O2 Sat by Pulse Oximetry 98 01/06/17 16:39 Temperature 98.0 F 01/06/17 16:41 Pulse Rate 84 01/06/17 18:25 Respiratory Rate 18 01/06/17 18:25 Blood Pressure 123/89 01/06/17 17:32 O2 Sat by Pulse Oximetry 94 L 01/06/17 18:25 Oxygen Delivery Oxygen Delivery Room Air Abdominal Pain - Differential Diagnosis Differential Diagnosis: Likely: abdominal pain non-specific, constipation, pancreatitis (MILD) - Medical Records Medical records reviewed: Yes I reviewed the patient's medical records. - Lab Data Lab results reviewed: Yes I reviewed the patient's lab results. Result diagrams: 01/06/17 17:20 01/06/17 17:20 Lab Results 01/06/17 01/06/17 01/06/17 Range/Units 17:20 17:20 17:20 WBC 12.0 H (4.3-11.1) K/mcL RBC 5.22 H (3.82-4.97) M/mcL Hgb 12.8 D (11.5-15.4) g/dL Hct 42.2 (35.3-44.9) % MCV 80.8 L (83.0-100.0) fL MCH 24.5 L (28.0-33.3) pg MCHC 30.3 L (31.6-35.5) g/dL RDW 20.4 H (11.5-14.5) % Plt Count 300 (140-400) K/mcL MPV 10.7 (9.4-12.4) fL Immature Gran % 0.5 (0-4) % Seg Neutrophils % 88.3 % Lymphocytes % 5.5 % Monocytes % 4.0 % Eosinophils % 1.5 % Basophils % 0.2 % Neutrophils # 10.6 H (1.6-8.9) K/mcL Lymphocytes # 0.7 (0.6-4.6) K/mcL Monocytes # 0.5 (0.0-1.3) K/mcL Eosinophils # 0.2 (0.0-0.6) K/mcL Basophils # 0.0 (0.0-0.2) K/mcL PT 22.6 H D (9.4-12.1) Seconds INR 2.1 D APTT 39.0 H (26.0-36.0) Seconds Sodium 141 (136-145) mEq/L Potassium 4.3 (3.5-4.5) mEq/L Chloride 99 (98-109) mEq/L Carbon Dioxide 27 (19-29) mEq/L BUN 36 H D (7-20) mg/dL Creatinine 1.87 H (0.57-1.11) mg/dL Est GFR ( Amer) 32 L (> 60) Est GFR (Non-Af Amer) 26 L (> 60) BUN/Creatinine Ratio 19 (6-26) Glucose 226 H (70-99) mg/dL Calculated Osmolality 307 H (280-300) Calcium 9.5 (8.6-10.8) mg/dL Total Bilirubin 1.1 (0.2-1.2) mg/dL AST 26 (5-34) Units/L ALT 61 H (0-55) Units/L Alkaline Phosphatase 166 H (38-126) Units/L Serum Total Protein 7.7 (6.0-8.3) g/dL Albumin 2.9 L (3.5-5.0) g/dL Globulin 4.8 H (2.4-3.5) g/dL Albumin/Globulin Ratio 0.6 L (1.1-2.2) Lipase 112 H (8-78) Units/L Urine Color (Yellow) Urine Clarity (Clear) Urine pH (5.0-8.0) pH Units Ur Specific [place] (1.010-1.025) Urine Protein (Neg-Trace) mg/dL Urine Glucose (UA) (Normal) mg/dL Urine Ketones (Negative) mg/dL Urine Blood (Negative) Urine Nitrite (Negative) Urine Bilirubin (Negative) Urine Urobilinogen (Normal) mg/dL Ur Leukocyte Esterase (Negative) Urine Microscopic RBC (0-3) per hpf Urine Microscopic WBC (0-3) per hpf Ur Squamous Epith Cells (None-Few) per lpf Ur Renal Epithelial Cell (None-Few) per hpf Urine Bacteria (None-Few) per hpf Ur Culture Indicated? (NO) 01/06/17 Range/Units 17:30 WBC (4.3-11.1) K/mcL RBC (3.82-4.97) M/mcL Hgb (11.5-15.4) g/dL Hct (35.3-44.9) % MCV (83.0-100.0) fL MCH (28.0-33.3) pg MCHC (31.6-35.5) g/dL RDW (11.5-14.5) % Plt Count (140-400) K/mcL MPV (9.4-12.4) fL Immature Gran % (0-4) % Seg Neutrophils % % Lymphocytes % % Monocytes % % Eosinophils % % Basophils % % Neutrophils # (1.6-8.9) K/mcL Lymphocytes # (0.6-4.6) K/mcL Monocytes # (0.0-1.3) K/mcL Eosinophils # (0.0-0.6) K/mcL Basophils # (0.0-0.2) K/mcL PT (9.4-12.1) Seconds INR APTT (26.0-36.0) Seconds Sodium (136-145) mEq/L Potassium (3.5-4.5) mEq/L Chloride (98-109) mEq/L Carbon Dioxide (19-29) mEq/L BUN (7-20) mg/dL Creatinine (0.57-1.11) mg/dL Est GFR ( Amer) (> 60) Est GFR (Non-Af Amer) (> 60) BUN/Creatinine Ratio (6-26) Glucose (70-99) mg/dL Calculated Osmolality (280-300) Calcium (8.6-10.8) mg/dL Total Bilirubin (0.2-1.2) mg/dL AST (5-34) Units/L ALT (0-55) Units/L Alkaline Phosphatase (38-126) Units/L Serum Total Protein (6.0-8.3) g/dL Albumin (3.5-5.0) g/dL Globulin (2.4-3.5) g/dL Albumin/Globulin Ratio (1.1-2.2) Lipase (8-78) Units/L Urine Color Yellow (Yellow) Urine Clarity Cloudy A (Clear) Urine pH 6.5 (5.0-8.0) pH Units Ur Specific [place] 1.020 (1.010-1.025) Urine Protein >=300 H (Neg-Trace) mg/dL Urine Glucose (UA) 100 H (Normal) mg/dL Urine Ketones Trace H (Negative) mg/dL Urine Blood Moderate H (Negative) Urine Nitrite Negative (Negative) Urine Bilirubin Small H (Negative) Urine Urobilinogen Normal (Normal) mg/dL Ur Leukocyte Esterase Trace H (Negative) Urine Microscopic RBC 5-15 H (0-3) per hpf Urine Microscopic WBC 50-100 H (0-3) per hpf Ur Squamous Epith Cells Few (None-Few) per lpf Ur Renal Epithelial Cell Moderate H (None-Few) per hpf Urine Bacteria Many H (None-Few) per hpf Ur Culture Indicated? YES A (NO) - Radiology Data Radiology results reviewed: Yes I reviewed the patient's radiology results. ITS Impressions Abdomen/Pelvis CT 01/06/17 16:56 IMPRESSION: Small pleural effusions with minimal bibasilar atelectasis. Small amount of ascites. No acute intra-abdominal or pelvic process seen. D/ / 01/06/2017 18:24:46 Romero Cochran MD / jovany Interpreting Provider: Romero Cochran MD Chest X-Ray 01/06/17 16:56 IMPRESSION: 1. Cardiomegaly and central pulmonary venous hypertension. 2. Stable bilateral mild effusions with mild progressive lung base atelectasis versus pneumonia. D/ / 01/06/2017 18:25:58 Sean Pugh MD / jovany Interpreting Provider: Sean Pugh MD - EKG Data EKG attestation: Yes I reviewed and interpreted this EKG. EKG results narrative: Atrial fib right bundle-branch block rate 92 QRS 130 QT 388 axes 92 Critical Care Time Critical Care Time: No
[2017-01-06 17:27] LABS: Basophils % 0.2 %; Eosinophils # 0.2 K/mcL (0.0-0.6); Eosinophils % 1.5 %; Hematocrit 42.2 % (35.3-44.9); Hemoglobin 12.8 g/dL (11.5-15.4); Immature Granulocytes % 0.5 % (0-4); Lymphocytes # 0.7 K/mcL (0.6-4.6); Lymphocytes % 5.5 %; Mean Corpuscular HGB Conc 30.3 g/dL (31.6-35.5); Mean Corpuscular Hemoglobin 24.5 pg (28.0-33.3); Mean Corpuscular Volume 80.8 fL (83.0-100.0); Mean Platelet Volume 10.7 fL (9.4-12.4); Monocytes # 0.5 K/mcL (0.0-1.3); Neutrophils # 10.6 K/mcL (1.6-8.9); Platelet Count 300 K/mcL (140-400); Red Blood Count 5.22 M/mcL (3.82-4.97); Red Cell Distribution Width 20.4 % (11.5-14.5); Segmented Neutrophils % 88.3 %
[2017-01-06 17:37] LABS: INR 2.1; Prothrombin Time 22.6 Seconds (9.4-12.1)
[2017-01-06 17:44] LABS: Bilirubin,Urine Small (Negative); Blood,Urine Moderate (Negative); Clarity,Urine Cloudy (Clear); Color,Urine Yellow (Yellow); Glucose,Urine (UA) 100 mg/dL (Normal); Ketones,Urine Trace mg/dL (Negative); Leukocyte Esterase,Urine Trace (Negative); Nitrite,Urine Negative (Negative); PH,Urine 6.5 pH Units (5.0-8.0); Protein,Urine >=300 mg/dL (Neg-Trace); Urobilinogen,Urine Normal (Normal)
[2017-01-06 17:49] LABS: Albumin 2.9 g/dL (3.5-5.0); Albumin/Globulin Ratio 0.6 (1.1-2.2); Bilirubin,Total 1.1 mg/dL (0.2-1.2); Calcium 9.5 mg/dL (8.6-10.8); Globulin 4.8 g/dL (2.4-3.5); Potassium 4.3 mEq/L (3.5-4.5); Total Protein 7.7 g/dL (6.0-8.3)
[2017-01-06] MEDS ORDERED: CefTRIAXone 1,000 MG in D5% in Water (Mini-Bag+) 100 ML IVPB ONE (17:49)
[2017-01-06 17:53] LABS: Bacteria,Urine Many per hpf (None-Few); Renal Epithelial Cells,Urine Moderate per hpf (None-Few); Squamous Epithelial Cell,Urine Few per lpf (None-Few); WBC,Urine 50-100 per hpf (0-3)
[2017-01-06] MEDS ORDERED: 0.9 % Sodium Chloride 1,000 ML IVC SCH ×2 (18:00→20:45)
[2017-01-06] MEDS ORDERED: *HR* LORazepam 0.5 MG TABLET PO PRN (20:45)
[2017-01-06] MEDS ORDERED: D5% in Water 1,000 ML IV PRN (20:45)
[2017-01-06] MEDS ORDERED: Dextrose Gel 15 GM PO PRN ×2 (20:45)
[2017-01-06] MEDS ORDERED: Ibuprofen 400 MG TABLET PO PRN (20:45)
[2017-01-06] MEDS ORDERED: Acetaminophen 325 MG TABLET PO PRN (20:45)
[2017-01-06] MEDS ORDERED: *HR* Dextrose 50 % in Water (Syg) 50 ML SYRINGE IVP PRN (20:45)
[2017-01-06] MEDS ORDERED: Mirtazapine 15 MG TABLET PO PRN (20:45)
[2017-01-06] MEDS ORDERED: Naloxone 0.4 MG/ML INJ IVP PRN (20:45)
[2017-01-06] MEDS ORDERED: Ondansetron 4 MG/2 ML VIAL IVP PRN (20:45)
[2017-01-06] MEDS ORDERED: *HR* HYDROcodone/Acet 5/325 mg TABLET PO PRN (20:45)
[2017-01-06] MEDS ORDERED: NON-FORMULARY MEDICATION 1 EACH EACH (Insulin Nph Hum/Reg Insulin Hm [Humulin 70/30 Kwikpe SQ SCH (21:00)
[2017-01-06] MEDS ORDERED: Insulin NPH/REG 70/30 300 UNIT/3 ML per UNIT SQ SCH (21:15)
[2017-01-06] MEDS: Gabapentin 100 MG CAPSULE PO SCH (22:53)
[2017-01-06] MEDS: Clotrimazole/Betameth Dip CRM 45 APPL/45 GM TUBE TP SCH (22:54)
[2017-01-06] MEDS: Nystatin Cream 15 GM TUBE TP SCH (22:54)
[2017-01-06] MEDS: Furosemide 40 MG TABLET PO SCH (22:54)
[2017-01-06] MEDS: Nystatin POWDER 30 GM BOTTLE TP SCH (22:54)
[2017-01-06] MEDS: BECAPLERMIN TP SCH (22:55)
[2017-01-06] MEDS: Azithromycin 500 MG in D5% in Water 250 ML IVPB SCH (23:05)
[2017-01-07 05:55] LABS: Basophils % 0.4 %; Eosinophils # 0.3 K/mcL (0.0-0.6); Eosinophils % 3.7 %; Hematocrit 32.6 % (35.3-44.9); Hemoglobin 9.7 g/dL (11.5-15.4); Immature Granulocytes % 0.5 % (0-4); Lymphocytes # 1.1 K/mcL (0.6-4.6); Mean Corpuscular HGB Conc 29.8 g/dL (31.6-35.5); Mean Corpuscular Hemoglobin 24.4 pg (28.0-33.3); Mean Corpuscular Volume 82.1 fL (83.0-100.0); Mean Platelet Volume 11.3 fL (9.4-12.4); Monocytes # 0.6 K/mcL (0.0-1.3); Monocytes % 6.6 %; Neutrophils # 6.4 K/mcL (1.6-8.9); Platelet Count 261 K/mcL (140-400); Red Blood Count 3.97 M/mcL (3.82-4.97); Red Cell Distribution Width 19.9 % (11.5-14.5); Segmented Neutrophils % 75.8 %
[2017-01-07 06:20] LABS: Calcium 8.2 mg/dL (8.6-10.8)
[2017-01-07] MEDS: BECAPLERMIN TP SCH ×2 (08:07→22:23)
[2017-01-07] MEDS: Insulin LISPRO 300 UNITS/3 ML VIAL SQ SCH ×3 (08:07→17:28)
[2017-01-07] MEDS ORDERED: NON-FORMULARY MEDICATION 1 EACH EACH (Insulin Nph Hum/Reg Insulin Hm [Humulin 70/30 Kwikpe SQ SCH (09:00)
[2017-01-07] MEDS ORDERED: CefTRIAXone 1,000 MG in D5% in Water (Mini-Bag+) 100 ML IVPB SCH (09:00)
[2017-01-07] MEDS ORDERED: Insulin NPH/REG 70/30 100 UNIT/ML (x5UNIT) SQ SCH ×3 (09:00→21:58)
[2017-01-07] MEDS: Nystatin POWDER 30 GM BOTTLE TP SCH ×2 (11:03→22:21)
[2017-01-07] MEDS: Nystatin Cream 15 GM TUBE TP SCH ×2 (11:03→22:15)
[2017-01-07] MEDS: Isosorbide MONOnitrate (24 HR) 60 MG TAB.ER.24H PO SCH (11:06)
[2017-01-07] MEDS: Lisinopril 20 MG TABLET PO SCH (11:06)
[2017-01-07] MEDS: Furosemide 40 MG TABLET PO SCH ×2 (11:07→17:21)
[2017-01-07] MEDS: Multivit/Ca/Min/Fe/FA 1 TAB TABLET PO SCH (11:07)
--- NOTE | 2017-01-07 12:08 | Internal Med History&Physical ---
Date of Encounter: 01/07/17 Time of Encounter: 11:35 Assessment and Plan (1) Abdominal pain Current visit: Yes Status: Acute Improved. I doubt significant pancreatitis was present. Monitor without further workup at this time. Qualifiers: Abdominal location: generalized Qualified Code(s): R10.84 - Generalized abdominal pain (2) CKD (chronic kidney disease) stage 4, GFR 15-29 ml/min Current visit: No Status: Chronic Creatinine has improved to 1.87 on admission with estimated GFR 26. Continue present management and monitor renal indices. (3) Congestive heart failure Current visit: No Status: Chronic Qualifiers: Congestive heart failure type: systolic Congestive heart failure chronicity : acute Qualified Code(s): I50.21 - Acute systolic (congestive) heart failure (4) DM2 (diabetes mellitus, type 2) Current visit: No Status: Chronic Hemoglobin A1c was 7.6 on 01/03/2017. Continue Humulin 70/30 and do Accu-Cheks with SSI. Qualifiers: Diabetes mellitus complication status: with kidney complications Diabetes mellitus complication detail: with chronic kidney disease Diabetes mellitus rodent exterminator insulin use: unspecified rodent exterminator insulin use status Chronic kidney disease stage: stage 4 (severe) Qualified Code(s): E11.22 - Type 2 diabetes mellitus with diabetic chronic kidney disease; N18.4 - Chronic kidney disease, stage 4 (severe) (5) Hypothyroidism Current visit: No Status: Chronic TSH was normal at 1.909 on 01/04/2017. Continue present dose Synthroid Qualifiers: Qualified Code(s): E03.9 - Hypothyroidism, unspecified (6) Microcytosis Current visit: No Status: Chronic Anemia testing done 01/03/2017 showed iron 60 and ferritin 946. Observe without further workup or treatment Internal Medicine - H&P: HPI Chief complaint: Abdominal pain Admitted From: Home Plans for Post Hospital Care: Home History of present illness: Ms. Bullock is a 76 year old female came to the hospital stating she developed abdominal pain and swelling shortly after arriving home from the hospital on January 04. Had nausea but no vomiting or diarrhea. She states she was unable take any food did not sleep. She describes the pain is simply discomfort in her epigastric area that seemed to spread further rest or abdomen. She was evaluated in the emergency room found to have slightly elevated lipase and possible pneumonia. She was admitted to MedSurg floor for ongoing care needs. She was discharged from [facility] January 04 after admission January 01 for dyspnea felt to be due primarily to congestive heart failure. She has had cholecystectomy but denies disorders of her liver or exocrine pancreas. She has GERD and hemorrhoids. She denies previous similar abdominal pain. Past Med Surg Social Fam HX - Past Medical History Medical history: arthritis, asthma, DVT, diabetes, hyperlipidemia, hypertension , myocardial infarction, peripheral artery disease Psychiatric history: anxiety, depression - Past Surgical History Surgical History: carotid endarterectomy, cholecystectomy, orthopedic, other, other - Social History Smoking Status: Former smoker Smokeless Tobacco Status: No Alcohol use: none Drug use: none - Family History Mother Family Member Ethnicity: Non- Living Status: Hx Family Cardiac Disorders: No Hx Family Respiratory Disorders: No Hx Family Cancer: Yes Hx Family GI Disorders: No Hx Family Endocrine Disorder: No Hx Family Neuromuscular Disorders: No Hx Family Neurologic Disorders: No Hx Family HEENT Disorders: No Hx Family Autoimmune Disorders: No Internal Medicine - H&P: Meds Furosemide [Lasix] 40 mg PO BID 03/28/16 [History] Metoprolol Tartrate [Lopressor] 50 mg PO BID 03/28/16 [History] Mirtazapine [Remeron] 15 mg PO HS PRN 03/28/16 [History] Multivit-Min/FA/Lycopen/Lutein [A Thru Z Select Multivit Tab] 1 tab PO DAILY [History] Omeprazole [PriLOSEC] 20 mg PO DAILY 03/28/16 [History] Paricalcitol [Zemplar] 1 mcg PO DAILY 03/28/16 [History] Amlodipine [Norvasc] 5 mg PO DAILY 12/11/16 [History] Becaplermin [Regranex] 0.01 gm TP BID 12/11/16 [History] Gabapentin [Neurontin] 100 - 200 mg PO HS 12/11/16 [History] Insulin NPH Hum/Reg Insulin Hm [Humulin 70/30 Kwikpen] 28 unit SQ HS 12/11/16 [ History] Insulin NPH Hum/Reg Insulin Hm [Humulin 70/30 Kwikpen] 30 unit SQ QAM 12/11/16 [ History] Levothyroxine Sodium [Levoxyl] 200 mcg PO DAILY 12/11/16 [History] Lisinopril [Zestril] 20 mg PO DAILY 12/11/16 [History] Nystatin Cream [Mycostatin Cream] 1 appl TP BID 12/11/16 [History] Nystatin POWDER [Nystop] 1 appl TP BID 12/11/16 [History] Warfarin [Coumadin] 1.5 mg PO QDPC 12/11/16 [History] LORazepam [Lorazepam] 0.5 mg PO BID PRN 01/01/17 [History] Mirtazapine [Remeron] 15 mg PO HS 01/01/17 [History] Nitroglycerin [Nitrostat] 0.4 mg SL QDPC PRN 01/01/17 [History] Tramadol HCl [Ultram] 50 mg PO QID PRN 01/01/17 [History] HYDROcodone/Acet 5/325 mg [[place] 5-325 mg] 1 tab PO Q8H PRN 01/03/17 [History] Meclizine HCl [Verticalm] 25 mg PO TID PRN 01/03/17 [History] Clotrimazole/Betameth Dip CRM [Lotrisone CRM] 1 appl TP BID #1 tube 01/04/17 [Rx ] Digoxin [Lanoxin] 0.125 mg PO DAILY #30 tablet 01/04/17 [Rx] Isosorbide MONOnitrate (24 HR) [Imdur] 60 mg PO DAILY #30 tab.er.24h 01/04/17 [ Rx] Allergies codeine Allergy (Verified 12/04/16 10:31) Hives Penicillins [PCN] Allergy (Verified 12/04/16 10:31) Hives All Systems PM: A 10-system review of systems was performed and is negative for pertinent findings except as documented above in the HPI. Review of systems: Review of systems from her recent [facility] stay were reviewed and revised as below. Gen.: Her weight has stable since the April 2016 hospitalization at approximately 90 kg Cardiovascular: Her cardiovascular history is significant for hypertension. She has known ASHD status post [place] 2 most recently 2010. Heart catheter was done 2013 and she did not require stents or other intervention. Previous heart catheter done 01/23/2011 showed mild LMCA disease with 15% stenosis, LAD with 60 % stenosis in the midportion, and 60-70% stenosis in the proximal to mid left circumflex. The proximal RCA was completely occluded. There were good collateral vessels from the first obtuse marginal to the distal right posterolateral artery. The LVEF was 45-50%. She has known CHF with echocardiogram 2010 showing LVEF of 30-35% and overall poor visualization. There was mild MR but no other significant valvular abnormalities. She had grade 1 diastolic dysfunction. She has known ASPVD with left leg stent placed. She has known ASCVD with left carotid endarterectomy in the past. She has had a left leg DVT in the past and is now on Coumadin. Respiratory: She smoked from age [age] never exceeding 1 pack per day. She had PFTs in the past but does not wear home oxygen. GI: As per history of present illness : She has no history of hematuria dysuria or kidney stones. She has CKD stage III but does not follow with nephrology regularly. Neurologic: She has right eye blindness. She denies large distribution strokes or seizures. Endocrine: She was diagnosed with DM 2 in 1993. She has hyperlipidemia and hypothyroidism. Allergy/oncology: She had anemia in the past. She does not have known internal malignancies or other blood disorders. Psychiatric: She has anxiety and depression but no other mental health issues Musk skeletal: She had cervical spine osteomyelitis in 2010 and received IV antibiotics for several weeks. She has chronic low back pain. She does not have documented gout or osteoporosis. She had amputation of the left great toe and has had wound clinic evaluation for left lateral foot ulcer. She has acute fibular fracture of the medial malleolus and subacute fracture of the proximal fibula March 2016. - Constitutional Vitals: Temp Pulse Resp BP Pulse Ox 97.6 F 60 18 140/67 100 01/07/17 10:58 01/07/17 10:58 01/07/17 10:58 01/07/17 10:58 01/07/17 10:58 Exam: Gen.: She is a well-developed well-nourished female who appears in minimal distress at present time. She states her abdominal pain has lessened and she feels hungry HEENT: Head is atraumatic and normocephalic. Eyes: EOMI. There is no scleral icterus. Mouth: Mucosa is moist. Neck: Supple and nontender. There is no thyromegaly or adenopathy noted. Heart: Regular without murmurs gallops or ectopics. Lungs: No wheezes or crackles are heard. Abdomen: Soft and nontender. No masses or guarding are noted. Extremities: The left foot is wrapped in gauze and I did not unwrap it. She has woody edema of her lower legs with chronic venous stasis pigmentation changes. She has mild DJD changes of her hands. Neurologic: Mental status: She is talkative and seems to be a good historian. Cranial nerves: Smile is symmetric. Forehead wrinkles bilaterally. Tongue protrudes midline. EOMI. Motor: There is no pronator drift. Cerebellar: Finger to nose is intact bilaterally. Skin: Warm and dry Internal Med - H&P Results - Labs CBC & Chem 7: 01/07/17 05:00 01/07/17 05:00 Labs: Short CBC 01/07/17 Range/Units 05:00 WBC 8.4 (4.3-11.1) K/mcL Hgb 9.7 L D (11.5-15.4) g/dL Hct 32.6 L (35.3-44.9) % Plt Count 261 (140-400) K/mcL Neutrophils # 6.4 (1.6-8.9) K/mcL BMP 01/07/17 05:00 Sodium 144 Potassium 4.0 Chloride 106 Carbon Dioxide 28 BUN 34 H Creatinine 1.61 H Glucose 71 Calcium 8.2 L
[2017-01-07] MEDS ORDERED: Ondansetron 4 MG/2 ML VIAL IVP PRN (12:28)
[2017-01-07] MEDS: Clotrimazole/Betameth Dip CRM 45 APPL/45 GM TUBE TP SCH ×2 (13:40→22:15)
[2017-01-07] MEDS: *HR* Digoxin 0.25 MG TABLET PO SCH (13:40)
--- NOTE | 2017-01-07 16:24 | Electrocardiograph Report ---
[address] [place], [place] [address] Test Date: 2017-01-06 Pat Name: Maribel Bullock Department: [id number] Room: [facility] Gender: F Senior Network Security Architect: : 1940 Requested By: Rama Dunn Order Number: [id number] Reading MD: Tevin Alexandre Measurements Intervals Economy Rate: 92 P: [place]: 0 QRS: 92 QRSD: 130 T: 4 QT: 388 QTc: 438 Interpretive Statements ATRIAL FIBRILLATION RIGHT BUNDLE BRANCH BLOCK Electronically Signed On 01-07-2017 16:22:26 EST by Tevin Alexandre
[2017-01-07] MEDS ORDERED: *HR* Warfarin 3 MG TABLET PO SCH (18:00)
[2017-01-07] MEDS ORDERED: Insulin LISPRO 300 UNITS/3 ML VIAL SQ SCH (21:00)
[2017-01-07] MEDS: Azithromycin 500 MG in D5% in Water 250 ML IVPB SCH (22:13)
[2017-01-07] MEDS: Gabapentin 100 MG CAPSULE PO SCH (22:14)
[2017-01-08 06:31] LABS: Basophils # 0.1 K/mcL (0.0-0.2); Basophils % 0.6 %; Eosinophils # 0.5 K/mcL (0.0-0.6); Eosinophils % 5.5 %; Hematocrit 32.4 % (35.3-44.9); Hemoglobin 9.7 g/dL (11.5-15.4); Immature Granulocytes % 0.3 % (0-4); Lymphocytes # 1.4 K/mcL (0.6-4.6); Lymphocytes % 16.1 %; Mean Corpuscular HGB Conc 29.9 g/dL (31.6-35.5); Mean Corpuscular Hemoglobin 24.6 pg (28.0-33.3); Mean Corpuscular Volume 82.2 fL (83.0-100.0); Mean Platelet Volume 10.1 fL (9.4-12.4); Monocytes # 0.7 K/mcL (0.0-1.3); Monocytes % 7.9 %; Neutrophils # 6.2 K/mcL (1.6-8.9); Platelet Count 250 K/mcL (140-400); Red Blood Count 3.94 M/mcL (3.82-4.97); Red Cell Distribution Width 19.7 % (11.5-14.5); Segmented Neutrophils % 69.6 %
[2017-01-08 06:33] LABS: Platelet Estimate Normal (Normal)
[2017-01-08 06:45] LABS: Calcium 8.4 mg/dL (8.6-10.8); Potassium 4.5 mEq/L (3.5-4.5)
[2017-01-08] MEDS ORDERED: Insulin NPH/REG 70/30 100 UNIT/ML (x5UNIT) SQ SCH (08:00)
[2017-01-08] MEDS: Insulin LISPRO 300 UNITS/3 ML VIAL SQ SCH (09:20)
[2017-01-08] MEDS: Isosorbide MONOnitrate (24 HR) 60 MG TAB.ER.24H PO SCH (09:50)
[2017-01-08] MEDS: Lisinopril 20 MG TABLET PO SCH (09:50)
[2017-01-08] MEDS: BECAPLERMIN TP SCH (09:50)
[2017-01-08] MEDS: *HR* Digoxin 0.25 MG TABLET PO SCH (09:50)
[2017-01-08] MEDS: Multivit/Ca/Min/Fe/FA 1 TAB TABLET PO SCH (09:50)
[2017-01-08] MEDS: Nystatin Cream 15 GM TUBE TP SCH (09:51)
[2017-01-08] MEDS: Furosemide 40 MG TABLET PO SCH (09:51)
[2017-01-08] MEDS: Clotrimazole/Betameth Dip CRM 45 APPL/45 GM TUBE TP SCH (09:52)
[2017-01-08] MEDS: Nystatin POWDER 30 GM BOTTLE TP SCH (09:52)
[2017-01-08 10:51] VITALS: BP 148/69
--- NOTE | 2017-01-08 12:04 | Discharge Summary ---
Date of Encounter: 01/08/17 Time of Encounter: 11:50 - Discharge Diagnosis (1) Abdominal pain Priority: Primary Status: Resolved Qualifiers: Abdominal location: generalized Qualified Code(s): R10.84 - Generalized abdominal pain (2) CKD (chronic kidney disease) stage 4, GFR 15-29 ml/min Priority: Secondary Status: Chronic (3) Congestive heart failure Priority: Secondary Status: Chronic Qualifiers: Congestive heart failure type: systolic Congestive heart failure chronicity : acute Qualified Code(s): I50.21 - Acute systolic (congestive) heart failure (4) DM2 (diabetes mellitus, type 2) Priority: Secondary Status: Chronic Qualifiers: Diabetes mellitus complication status: with kidney complications Diabetes mellitus complication detail: with chronic kidney disease Diabetes mellitus senior living insulin use: unspecified intermediate manager insulin use status Chronic kidney disease stage: stage 4 (severe) Qualified Code(s): E11.22 - Type 2 diabetes mellitus with diabetic chronic kidney disease; N18.4 - Chronic kidney disease, stage 4 (severe) (5) Hypothyroidism Priority: Secondary Status: Chronic Qualifiers: Qualified Code(s): E03.9 - Hypothyroidism, unspecified (6) Microcytosis Priority: Secondary Status: Chronic - Discharge Medications Prescriptions: Cefuroxime PO [Ceftin] 500 mg PO Q12HR #6 tablet Azithromycin [Zithromax] 250 mg PO DAILY #3 tablet Lactobacillus [Culturelle] 1 each PO BID #6 cap.sprink Home Medications: Furosemide [Lasix] 40 mg PO BID 03/28/16 [History] Metoprolol Tartrate [Lopressor] 50 mg PO BID 03/28/16 [History] Mirtazapine [Remeron] 15 mg PO HS PRN 03/28/16 [History] Multivit-Min/FA/Lycopen/Lutein [A Thru Z Select Multivit Tab] 1 tab PO DAILY [History] Omeprazole [PriLOSEC] 20 mg PO DAILY 03/28/16 [History] Paricalcitol [Zemplar] 1 mcg PO DAILY 03/28/16 [History] Amlodipine [Norvasc] 5 mg PO DAILY 12/11/16 [History] Becaplermin [Regranex] 0.01 gm TP BID 12/11/16 [History] Gabapentin [Neurontin] 100 - 200 mg PO HS 12/11/16 [History] Insulin NPH Hum/Reg Insulin Hm [Humulin 70/30 Kwikpen] 28 unit SQ HS 12/11/16 [ History] Insulin NPH Hum/Reg Insulin Hm [Humulin 70/30 Kwikpen] 30 unit SQ QAM 12/11/16 [ History] Levothyroxine Sodium [Levoxyl] 200 mcg PO DAILY 12/11/16 [History] Lisinopril [Zestril] 20 mg PO DAILY 12/11/16 [History] Nystatin Cream [Mycostatin Cream] 1 appl TP BID 12/11/16 [History] Nystatin POWDER [Nystop] 1 appl TP BID 12/11/16 [History] Warfarin [Coumadin] 1.5 mg PO QDPC 12/11/16 [History] LORazepam [Lorazepam] 0.5 mg PO BID PRN 01/01/17 [History] Mirtazapine [Remeron] 15 mg PO HS 01/01/17 [History] Nitroglycerin [Nitrostat] 0.4 mg SL QDPC PRN 01/01/17 [History] Tramadol HCl [Ultram] 50 mg PO QID PRN 01/01/17 [History] HYDROcodone/Acet 5/325 mg [[place] 5-325 mg] 1 tab PO Q8H PRN 01/03/17 [History] Meclizine HCl [Verticalm] 25 mg PO TID PRN 01/03/17 [History] Clotrimazole/Betameth Dip CRM [Lotrisone CRM] 1 appl TP BID #1 tube 01/04/17 [Rx ] Digoxin [Lanoxin] 0.125 mg PO DAILY #30 tablet 01/04/17 [Rx] Isosorbide MONOnitrate (24 HR) [Imdur] 60 mg PO DAILY #30 tab.er.24h 01/04/17 [ Rx] Azithromycin [Zithromax] 250 mg PO DAILY #3 tablet 01/08/17 [Rx] Cefuroxime PO [Ceftin] 500 mg PO Q12HR #6 tablet 01/08/17 [Rx] Lactobacillus [Culturelle] 1 each PO BID #6 cap.sprink 01/08/17 [Rx] Allergies/Adverse Reactions: Allergies codeine Allergy (Verified 12/04/16 10:31) Hives Penicillins [PCN] Allergy (Verified 12/04/16 10:31) Hives Date of admission: 01/06/17 20:17 Primary care physician: Marisa Warren Consults: 01/07/17 02:08 Consult to [place] [facility] [CONS] Routine Reason for SW Consult: Possible custodial placement. 01/07/17 12:28 Consult to Occupational Therapy [CONS] Routine Comment: Evaluate, develop and implement POC Consult to Physical Therapy [CONS] Routine Comment: Evaluate, develop and implement POC - Patient Status Disposition: Home, Self-Care Condition: Fair - Discharge Instructions Follow Up With: Marisa Warren MD [Primary Care Provider] - 1 week - Diet and Activity Activity: resume usual activities as tolerated Diet: diabetic diet Hospital course: Ms. Bullock is a 76 year old female who came to the hospital stating she developed abdominal pain and swelling shortly after arriving home from the hospital on January 04. She had nausea but no vomiting or diarrhea. She states she was unable take any food and did not sleep. She describes the pain as simply discomfort in her epigastric area that seemed to spread further over the rest of her abdomen. She was evaluated in the emergency room and found to have slightly elevated lipase and possible pneumonia. She was admitted to [facility] for ongoing care needs. Initial orders were written by the emergency room physician. I saw her on January 07 and performed the history and physical. She was started on Rocephin and Zithromax through emergency room because of the leukocytosis with left shift. These resolved by January 08 and she felt back to baseline when I saw her that day. Her BNP peptide improved 1087. Her abdominal pain and dyspnea had resolved. She will continue with antibiotic and probiotic for 3 additional days after discharge. When I saw her on January 08 she felt stable for discharge home which I felt was reasonable. She will follow with her PCP Dr. Warren within 1 week. - Time Spent with Patient Total time spent providing and/or coordinating discharge services: - Constitutional Vitals: Temp Pulse Resp BP Pulse Ox 97.8 F 60 16 148/69 93 L 01/08/17 10:48 01/08/17 10:48 01/08/17 10:48 01/08/17 10:48 01/08/17 10:48
[2017-01-08] MEDS ORDERED: CefTRIAXone 1,000 MG in D5% in Water (Mini-Bag+) 100 ML IVPB SCH (17:00)
== END 2017-01-08 12:47 | disposition home or self-care (01) ==
LOC: EMEROOPIK 16:37 → INPPIK 16:37
PROVIDERS: ADMIT Internal Medicine; ATTEND Internal Medicine